=== PATIENT | male | born 1960 | race Two or more races ===

== ENCOUNTER 2020-04-13 21:32 | Inpatient (IN) | payer OTHER ==
[~2020-04-13] VITALS: Ht 188 cm; Wt 121.0 kg
[2020-04-13] MEDS ORDERED: DOPamine 1600MCG/ML D5W 250 ML IV ONE (21:39)
[2020-04-13] MEDS ORDERED: NOREPINEPHRINE 8 MG/250ML KIT 250 ML IV ONE (21:43)
[2020-04-13] MEDS: NOREPINEPHRINE 8 MG/250ML KIT 250 ML IV SCH (21:44)
[2020-04-13 22:00] VITALS: BP 147/89
[2020-04-13] MEDS ORDERED: MIDAZOLAM DRIP 50 mg/50mL 50 ML IV ONE (22:06)
[2020-04-13] MEDS: MIDAZOLAM DRIP 50 mg/50mL 50 ML IV SCH (22:06)
[2020-04-13] MEDS ORDERED: VERAPAMIL 2.5MG/ML INJ 2ML VIAL IV ONE (23:03)
[2020-04-13] MEDS ORDERED: fentaNYL CITRATE 100 MCG/2 ML VL ONE (23:03)
[2020-04-13] MEDS ORDERED: ANGIOMAX 250 MG VIAL IV ONE (23:03)
[2020-04-13] MEDS ORDERED: MIDAZOLAM HCL 1MG/1ML-2 ML VIAL ONE (23:04)
[2020-04-13] MEDS ORDERED: SODIUM CHL 0.9% 0 ML ONE (23:04)
[2020-04-13] MEDS ORDERED: IODIXANOL 320MG/ML 100ML BTL IV ONE (23:04)
[2020-04-13] MEDS ORDERED: LIDOCAINE 2%HCL (LOCAL ANESTH.) INJ 20ML MDV ONE (23:04)
[2020-04-13 23:10] LABS: BUN/Creatinine Ratio 20.3; Hematocrit 46.2 % (41.0-53.0); Hemoglobin 15.1 g/dL (13.5-17.5); Mean Corpuscular Hemoglobin 32.9 pg (28.0-32.0); Mean Corpuscular Hgb Conc. 32.6 g/dL (32.0-36.0); Platelet Count (auto) 81 10^3/uL (140-450); Red Blood Cells 4.58 10^6/uL (4.5-5.90); Red Cell Distribution Width 15.3 % (11.8-14.3); White Blood Cell 11.2 10^3/uL (4.4-10.8)
[2020-04-13 23:11] LABS: Albumin 2.4 g/dL (3.4-5.0); Bilirubin, Total 0.3 mg/dL (0.2-1.0); Magnesium 1.9 mg/dL (1.6-2.6); Total Protein 4.6 g/dL (6.4-8.2)
[2020-04-13 23:13] LABS: Potassium 2.4 mmol/L (3.5-5.1)
[2020-04-13 23:14] LABS: Calcium 5.7 mg/dL (8.5-10.1)
[2020-04-13 23:17] LABS: Basophils % (manual) 0 (0.0-2.0); Blast Cells 0; Eosinophils % (manual) 0 (0-7); Myelocytes % 0; Promyelocytes % 0; Reactive Lymphocytes 0
[2020-04-13] MEDS ORDERED: POTASSIUM CHL 20MEQ/100ML 100 ML IV ONE ×2 (23:22→23:30)
[2020-04-13 23:46] LABS: INR 1.14 (0.9-1.15); Partial Thromboplastin Time 30.5 sec (23.0-31.2)
[2020-04-14] VITALS (79 sets, daily range): BP systolic 74–142; BP diastolic 33–91
[2020-04-14] MEDS: POTASSIUM CHL 10MEQ/100ML 100 ML IV SCH ×3 (01:00→06:35)
[2020-04-14] MEDS: MAGNESIUM SULFATE 1GM/100ML 100 ML IV SCH ×4 (01:00→04:09)
[2020-04-14] MEDS ORDERED: PANTOPRAZOLE 40 MG/10 ML VIAL INJ IV ONE (01:00)
[2020-04-14] MEDS ORDERED: PANTOPRAZOLE 40mg/50ML NS AE 50 ML IV ONE (01:00)
[2020-04-14] MEDS: MIDAZOLAM DRIP 50 mg/50mL 50 ML IV SCH ×7 (02:05→23:00)
[2020-04-14] MEDS ORDERED: POTASSIUM CHL 20MEQ/100ML 100 ML IV ONE (02:10)
[2020-04-14 02:58] LABS: Band Neutrophils % (manual) 6; Lymphocytes % (manual) 72 (10.0-50.0); Metamyelocytes % 1; Monocytes % (manual) 2 (0-12)
[2020-04-14] MEDS ORDERED: PHENYLEPHRINE IV 250 ML IV ONE ×2 (04:06→04:12)
[2020-04-14] MEDS: PHENYLEPHRINE IV 250 ML IV SCH ×3 (04:31→21:10)
[2020-04-14 05:35] LABS: Mean Corpuscular Hgb Conc. 33.2 g/dL (32.0-36.0)
[2020-04-14 05:39] LABS: Hematocrit 49.7 % (41.0-53.0); Hemoglobin 16.5 g/dL (13.5-17.5); Mean Corpuscular Volume 99.6 fL (80.0-100.0); Platelet Count (auto) 91 10^3/uL (140-450); Red Blood Cells 4.99 10^6/uL (4.5-5.90); Red Cell Distribution Width 15.4 % (11.8-14.3)
[2020-04-14] MEDS: SUCRALFATE 1 GM/10 ML ORAL SUSP PO SCH ×3 (06:00→17:50)
[2020-04-14 06:08] LABS: Potassium 3.5 mmol/L (3.5-5.1)
[2020-04-14 06:18] LABS: BUN/Creatinine Ratio 12.2; Calcium 8.2 mg/dL (8.5-10.1)
[2020-04-14 06:39] LABS: Basophils % (manual) 0 (0.0-2.0); Blast Cells 0; Eosinophils % (manual) 0 (0-7); Metamyelocytes % 0; Myelocytes % 0; Promyelocytes % 0; Reactive Lymphocytes 0
[2020-04-14 08:07] LABS: Band Neutrophils % (manual) 4; Lymphocytes % (manual) 8 (10.0-50.0); Monocytes % (manual) 8 (0-12)
[2020-04-14] MEDS ORDERED: ATEN50TA PO (11:10)
[2020-04-14] MEDS ORDERED: BENA40TA8 PO (11:10)
[2020-04-14] MEDS ORDERED: HYDR25TA5 PO (11:10)
[2020-04-14] MEDS ORDERED: PROPOFOL 100 ML IV ONE (11:26)
[2020-04-14] MEDS: PROPOFOL 100 ML IV SCH ×3 (11:30→17:51)
[2020-04-14] MEDS ORDERED: SODIUM BICARBONATE 8.4 % INJ 50ML VIAL IV ONE (12:54)
[2020-04-14] MEDS ORDERED: EPINEPHrine HCL 1 MG/10 ML SYRG IV ONE (12:54)
[2020-04-14] MEDS: PIPERACILLIN-TAZOB 3.375GM 100 ML IV SCH ×2 (14:36→21:50)
[2020-04-14] MEDS: fentaNYL Drip 2500mCg/250mlNS 250 ML IV SCH (15:00)
[2020-04-14] MEDS: ACETAMINOPHEN 500 MG TAB PO PRN ×2 (15:53→22:04)
[2020-04-14] MEDS: NOREPINEPHRINE 8 MG/250ML KIT 250 ML IV SCH ×2 (15:58→23:00)
[2020-04-14 16:21] LABS: Urine Bacteria FEW /hpf (None Seen); Urine Blood 3+ /uL (Negative); Urine Specific Gravity 1.043 (1.001-1.035); Urine WBC 109 /hpf (0 - 3); Urine WBC Clumps PRESENT /hpf (None Seen)
[2020-04-14 16:25] LABS: Amphetamine Screen, Urine NEGATIVE (NEGATIVE); Barbiturate Scree,Urine NEGATIVE (NEGATIVE); Cannabinoid Screen, Urine NEGATIVE (NEGATIVE); Cocaine Screen, Urine NEGATIVE (NEGATIVE); Opiate Scree,Urine NEGATIVE (NEGATIVE); Phencyclidine Screen, Urine NEGATIVE (NEGATIVE)
[2020-04-14 16:33] LABS: Benzodiazephine Screen, Urine POSITIVE (NEGATIVE)
[2020-04-14] MEDS: SODIUM BICARBONATE 50ML VIAL 50 ML in SOD CHL 0.45% 1,000 ML IV SCH (17:50)
[2020-04-14] MEDS: PANTOPRAZOLE 40 MG/10 ML VIAL INJ IV SCH (21:50)
[2020-04-14 22:43] LABS: Hemoglobin 14.2 g/dL (13.5-17.5)
[2020-04-15] VITALS (87 sets, daily range): BP systolic 95–134; BP diastolic 40–71
[2020-04-15] MEDS: PROPOFOL 100 ML IV SCH ×4 (01:05→11:38)
[2020-04-15] MEDS: MIDAZOLAM DRIP 50 mg/50mL 50 ML IV SCH ×2 (02:44→05:40)
[2020-04-15 04:01] LABS: Basophils # (auto) 0.1 10 ^3/uL (0-0.2); Eosinophils # (auto) 0 10 ^3/uL (0-0.8); Monocytes # (auto) 0.9 10 ^3/uL (0-1.3)
[2020-04-15 04:06] LABS: Basophils % (auto) 0.3 % (0.0-2.0); Hematocrit 39.7 % (41.0-53.0); Hemoglobin 13.7 g/dL (13.5-17.5); Lymphocytes # (auto) 2.5 10 ^3/uL (0.4-5.4); Lymphocytes % (auto) 12.3 % (10.0-50.0); Mean Corpuscular Hemoglobin 32.9 pg (28.0-32.0); Mean Corpuscular Hgb Conc. 34.6 g/dL (32.0-36.0); Mean Corpuscular Volume 95.1 fL (80.0-100.0); Monocytes % (auto) 4.7 % (0.0-12.0); Neutrophils # (auto) 16.7 10 ^3/uL (1.6-8.6); Neutrophils % (auto) 82.7 % (37.0-80.0); Platelet Count (auto) 56 10^3/uL (140-450); Red Blood Cells 4.18 10^6/uL (4.5-5.90); Red Cell Distribution Width 15.2 % (11.8-14.3); White Blood Cell 20.3 10^3/uL (4.4-10.8)
[2020-04-15 04:21] LABS: Albumin 3.1 g/dL (3.4-5.0); Calcium 7.5 mg/dL (8.5-10.1); Magnesium 2.8 mg/dL (1.6-2.6); Potassium 4.6 mmol/L (3.5-5.1)
[2020-04-15 04:25] LABS: BUN/Creatinine Ratio 8.6; Bilirubin, Total 0.9 mg/dL (0.2-1.0); Total Protein 6.1 g/dL (6.4-8.2)
[2020-04-15] MEDS: SODIUM BICARBONATE 50ML VIAL 50 ML in SOD CHL 0.45% 1,000 ML IV SCH (05:30)
[2020-04-15] MEDS: PHENYLEPHRINE IV 250 ML IV SCH ×3 (05:30→22:10)
[2020-04-15] MEDS: NOREPINEPHRINE 8 MG/250ML KIT 250 ML IV SCH ×2 (05:40→11:39)
[2020-04-15] MEDS: PIPERACILLIN-TAZOB 3.375GM 100 ML IV SCH ×2 (06:23→15:24)
[2020-04-15] MEDS: SUCRALFATE 1 GM/10 ML ORAL SUSP PO SCH ×5 (06:24→23:47)
[2020-04-15 08:43] LABS: White Blood Cell 33.8 10^3/uL (4.4-10.8)
[2020-04-15] MEDS: PANTOPRAZOLE 40 MG/10 ML VIAL INJ IV SCH ×2 (10:00→21:10)
[2020-04-15] MEDS ORDERED: SODIUM BICARBONATE 50ML VIAL 75 ML in D5W 5% 1,000 ML IV ONE (12:15)
[2020-04-15] MEDS ORDERED: SODIUM BICARBONATE 8.4 % INJ 50ML VIAL IV ONE (12:15)
[2020-04-15] MEDS: fentaNYL Drip 2500mCg/250mlNS 250 ML IV SCH (15:00)
[2020-04-15 15:17] LABS: Urine Amorphous Crystal MOD /hpf (None Seen); Urine Bacteria NONE SEEN /hpf (None Seen); Urine Blood 3+ /uL (Negative); Urine Budding Yeast FEW /hpf (None Seen); Urine Specific Gravity 1.032 (1.001-1.035); Urine WBC 269 /hpf (0 - 3); Urine WBC Clumps PRESENT /hpf (None Seen)
[2020-04-15 15:23] LABS: BUN/Creatinine Ratio 8.2; Calcium 7.2 mg/dL (8.5-10.1); Potassium 4.9 mmol/L (3.5-5.1)
[2020-04-15] MEDS ORDERED: Nepro With Carb Steady 1 Liter Bottle GT SCH (15:30)
[2020-04-15 15:44] LABS: Protein, Urine 517.2 mg/dL (0.0-11.9)
[2020-04-15] MEDS: PIPERACILLIN-TAZOB 2.25GM 50 ML IV SCH ×2 (16:59→23:47)
[2020-04-15] MEDS ORDERED: BUMETANIDE 2.5mg/10ml (0.25 mg/ml) INJ IV ONE (21:15)
[2020-04-16] VITALS (99 sets, daily range): BP systolic 84–135; BP diastolic 41–75
[2020-04-16 04:13] LABS: Basophils # (auto) 0 10 ^3/uL (0-0.2); Basophils % (auto) 0.1 % (0.0-2.0); Eosinophils # (auto) 0 10 ^3/uL (0-0.8); Hemoglobin 12.4 g/dL (13.5-17.5); Lymphocytes # (auto) 1.2 10 ^3/uL (0.4-5.4); Mean Corpuscular Hemoglobin 33.1 pg (28.0-32.0)
[2020-04-16 04:15] LABS: Hematocrit 35.6 % (41.0-53.0); Lymphocytes % (auto) 6.3 % (10.0-50.0); Mean Corpuscular Hgb Conc. 34.7 g/dL (32.0-36.0); Mean Corpuscular Volume 95.3 fL (80.0-100.0); Monocytes # (auto) 0.9 10 ^3/uL (0-1.3); Neutrophils # (auto) 16.5 10 ^3/uL (1.6-8.6); Neutrophils % (auto) 88.6 % (37.0-80.0); Platelet Count (auto) 41 10^3/uL (140-450); Red Blood Cells 3.74 10^6/uL (4.5-5.90); White Blood Cell 18.6 10^3/uL (4.4-10.8)
[2020-04-16 04:37] LABS: Albumin 2.4 g/dL (3.4-5.0); Calcium 7.1 mg/dL (8.5-10.1); Potassium 4.8 mmol/L (3.5-5.1)
[2020-04-16 04:39] LABS: BUN/Creatinine Ratio 8.1
[2020-04-16 05:05] LABS: Total Protein 5.7 g/dL (6.4-8.2)
[2020-04-16] MEDS: PIPERACILLIN-TAZOB 2.25GM 50 ML IV SCH ×4 (05:28→23:22)
[2020-04-16] MEDS: SUCRALFATE 1 GM/10 ML ORAL SUSP PO SCH ×4 (05:30→23:23)
[2020-04-16] MEDS: NOREPINEPHRINE 8 MG/250ML KIT 250 ML IV SCH (05:35)
[2020-04-16] MEDS: PHENYLEPHRINE IV 250 ML IV SCH ×3 (06:30→23:10)
[2020-04-16] MEDS: fentaNYL Drip 2500mCg/250mlNS 250 ML IV SCH ×2 (08:30→22:42)
[2020-04-16] MEDS: PANTOPRAZOLE 40 MG/10 ML VIAL INJ IV SCH ×2 (09:32→22:28)
[2020-04-16] MEDS ORDERED: SODIUM BICARBONATE 50ML VIAL 150 ML in D5W 5% 1,000 ML IV SCH (11:30)
[2020-04-16] MEDS ORDERED: SODIUM BICARBONATE 8.4 % INJ 50ML VIAL IV ONE (11:30)
[2020-04-16] MEDS ORDERED: HEPARIN SODIUM (PORCINE) 5000 UNITS/ML 1ML VIAL ONE (13:37)
[2020-04-16] MEDS: MIDAZOLAM DRIP 50 mg/50mL 50 ML IV SCH (15:00)
[2020-04-16] MEDS: BUMETANIDE 2.5mg/10ml (0.25 mg/ml) INJ IV SCH (18:14)
[2020-04-17] VITALS (93 sets, daily range): BP systolic 72–150; BP diastolic 35–93
[2020-04-17] MEDS: PIPERACILLIN-TAZOB 2.25GM 50 ML IV SCH ×4 (05:29→23:28)
[2020-04-17] MEDS: SUCRALFATE 1 GM/10 ML ORAL SUSP PO SCH ×4 (05:29→23:29)
[2020-04-17] MEDS: BUMETANIDE 2.5mg/10ml (0.25 mg/ml) INJ IV SCH ×2 (05:29→17:29)
[2020-04-17 06:39] LABS: Basophils # (auto) 0 10 ^3/uL (0-0.2); Eosinophils # (auto) 0.1 10 ^3/uL (0-0.8); Lymphocytes # (auto) 1.3 10 ^3/uL (0.4-5.4); Monocytes # (auto) 0.6 10 ^3/uL (0-1.3)
[2020-04-17 06:41] LABS: Basophils % (auto) 0.4 % (0.0-2.0); Eosinophils % (auto) 0.5 % (0.0-7.0); Hematocrit 34.3 % (41.0-53.0); Hemoglobin 11.8 g/dL (13.5-17.5); Lymphocytes % (auto) 9.8 % (10.0-50.0); Mean Corpuscular Hemoglobin 32.9 pg (28.0-32.0); Mean Corpuscular Hgb Conc. 34.4 g/dL (32.0-36.0); Mean Corpuscular Volume 95.5 fL (80.0-100.0); Monocytes % (auto) 4.9 % (0.0-12.0); Neutrophils # (auto) 11.1 10 ^3/uL (1.6-8.6); Neutrophils % (auto) 84.4 % (37.0-80.0); Platelet Count (auto) 42 10^3/uL (140-450); Red Blood Cells 3.59 10^6/uL (4.5-5.90); Red Cell Distribution Width 15.2 % (11.8-14.3); White Blood Cell 13.1 10^3/uL (4.4-10.8)
[2020-04-17 06:55] LABS: Potassium 3.8 mmol/L (3.5-5.1)
[2020-04-17 07:13] LABS: BUN/Creatinine Ratio 8.5
[2020-04-17] MEDS: PHENYLEPHRINE IV 250 ML IV SCH ×3 (07:30→21:11)
[2020-04-17] MEDS: PANTOPRAZOLE 40 MG/10 ML VIAL INJ IV SCH ×2 (09:32→21:15)
[2020-04-17] MEDS: SODIUM BICARBONATE 50ML VIAL 75 ML in SOD CHL 0.45% 1,000 ML IV SCH ×2 (11:00→20:01)
[2020-04-17] MEDS ORDERED: DOPamine 1600MCG/ML D5W 250 ML IV SCH (11:00)
[2020-04-17] MEDS: PROPOFOL 100 ML IV SCH (11:15)
[2020-04-17] MEDS: MIDAZOLAM DRIP 50 mg/50mL 50 ML IV SCH (15:00)
[2020-04-17] MEDS: NOREPINEPHRINE 8 MG/250ML KIT 250 ML IV SCH (21:10)
[2020-04-18] VITALS (43 sets, daily range): BP systolic 64–160; BP diastolic 31–77
[2020-04-18 04:45] LABS: Potassium 4.2 mmol/L (3.5-5.1)
[2020-04-18 04:56] LABS: BUN/Creatinine Ratio 8.2; Calcium 7.7 mg/dL (8.5-10.1)
[2020-04-18] MEDS: BUMETANIDE 2.5mg/10ml (0.25 mg/ml) INJ IV SCH (04:57)
[2020-04-18] MEDS: PIPERACILLIN-TAZOB 2.25GM 50 ML IV SCH ×2 (04:57→12:05)
[2020-04-18] MEDS: SUCRALFATE 1 GM/10 ML ORAL SUSP PO SCH ×2 (04:58→12:05)
[2020-04-18] MEDS: SODIUM BICARBONATE 50ML VIAL 75 ML in SOD CHL 0.45% 1,000 ML IV SCH (08:30)
[2020-04-18] MEDS: NOREPINEPHRINE 8 MG/250ML KIT 250 ML IV SCH (10:32)
[2020-04-18] MEDS: PANTOPRAZOLE 40 MG/10 ML VIAL INJ IV SCH (10:32)
[2020-04-18] MEDS: ACETAMINOPHEN 500 MG TAB PO PRN (12:05)
== END 2020-04-18 16:50 | DRG 871 ==
LOC: EDBD 21:32 → ER 21:34 → CATH 1 04-14 00:38 → CATH ICU 04-14 00:39 → ICU WEST 04-14 13:30
PROVIDERS: ADMIT Specialist; ATTEND Internal Medicine
PROC: 05HN33Z Insertion of Infusion Device into Left Internal Jugular Vein, Percutaneous Approach (ICD-10-PCS; principal; 2020-04-14)
PROC: 4A023N7 Measurement of Cardiac Sampling and Pressure, Left Heart, Percutaneous Approach (ICD-10-PCS; 2020-04-14)
PROC: B211YZZ Fluoroscopy of Multiple Coronary Arteries using Other Contrast (ICD-10-PCS; 2020-04-14)
PROC: B215YZZ Fluoroscopy of Left Heart using Other Contrast (ICD-10-PCS; 2020-04-14)
PROC: B41FYZZ Fluoroscopy of Right Lower Extremity Arteries using Other Contrast (ICD-10-PCS; 2020-04-14)
PROC: 02HV33Z Insertion of Infusion Device into Superior Vena Cava, Percutaneous Approach (ICD-10-PCS; 2020-04-14)
PROC: 5A1945Z Respiratory Ventilation, 24-96 Consecutive Hours (ICD-10-PCS; 2020-04-14)
PROC: 0BH17EZ Insertion of Endotracheal Airway into Trachea, Via Natural or Artificial Opening (ICD-10-PCS; 2020-04-14)
PROC: B548ZZA Ultrasonography of Superior Vena Cava, Guidance (ICD-10-PCS; 2020-04-14)
DX: A41.9 Sepsis, unspecified organism (principal); U07.1 COVID-19; R65.21 Severe sepsis with septic shock; J96.00 Acute respiratory failure, unspecified whether with hypoxia or hypercapnia; N17.0 Acute kidney failure with tubular necrosis; G93.41 Metabolic encephalopathy; R40.20 Unspecified coma; J12.82 Pneumonia due to coronavirus disease 2019; G93.6 Cerebral edema; I16.1 Hypertensive emergency; G93.1 Anoxic brain damage, not elsewhere classified; E87.2 Acidosis; E87.1 Hypo-osmolality and hyponatremia; I46.9 Cardiac arrest, cause unspecified; D69.6 Thrombocytopenia, unspecified; E83.51 Hypocalcemia; E87.6 Hypokalemia; R40.2431 Glasgow coma scale score 3-8, in the field [EMT or ambulance]; R31.9 Hematuria, unspecified; E66.9 Obesity, unspecified; I25.10 Atherosclerotic heart disease of native coronary artery without angina pectoris; F17.200 Nicotine dependence, unspecified, uncomplicated; I11.0 Hypertensive heart disease with heart failure; I50.9 Heart failure, unspecified; Z68.34 Body mass index [BMI] 34.0-34.9, adult; Z87.01 Personal history of pneumonia (recurrent); Z79.899 Other long term (current) drug therapy; Z66 Do not resuscitate
CPT/HCPCS: 36415; 36600; 70450; 71045; 71250; 74176; 80048; 80053; 80307; 81001; 82270; 82436; 82550; 82570; 82805; 83735; 84133; 84156; 84300; 84443; 84484; 85007; 85014; 85018; 85025; 85027; 85379; 85610; 85730; 86850; 86900; 86901; 87040; 87070; 87077; 87081; 87086; 87186; 87205; 87426; 93005; 93306; 93970; 94002; 94003; 99152; 99291; C9113; G0378; J2250; J2543; J2704; J3480; Q9967